=== PATIENT | female | born 1940 | race Caucasian/White ===

== ENCOUNTER 2017-10-19 12:52 | Outpatient (CLI) | payer MEDICARE, MEDICAID ==
[~2017-10-19 12:52] MED LIST: MECLIZINE 25MG25 MG PO; MEDROL 4MG. DOSE4 MG PO
[2017-10-29] MEDS ORDERED: AMIODARONE 200200 MG PO (10:27)
[2017-10-29] MEDS ORDERED: BUMETANIDE2 MG PO (10:27)
[2017-10-29] MEDS ORDERED: APRESOLINE 50MG50 MG OR (10:27)
[2017-10-29] MEDS ORDERED: ISOSORBIDE MON120 MG PO (10:28)
[2017-10-29] MEDS ORDERED: PRAVACHOL 40MG40 MG PO (10:28)
[2017-10-29] MEDS ORDERED: KLOR-CON 1010 ME1 PO (10:30)
[2017-10-29] MEDS ORDERED: POLYETHYLE17 GM/Dose PO (10:48)
[2017-10-29] MEDS ORDERED: CALCIUM600 M1 PO (10:49)
[2017-10-29] MEDS ORDERED: OMEPRAZOLE20 MG PO (10:49)
[2017-10-29] MEDS ORDERED: ADULT LOW DOSE81 MG PO (10:49)
[2017-10-29] MEDS ORDERED: WARFARIN SODIUM3 MG PO (10:49)
== END 2017-10-19 16:28 ==
LOC: ACC 12:52
DX: I48.91 Unspecified atrial fibrillation (principal); Z79.01 Long term (current) use of anticoagulants; Z51.81 Encounter for therapeutic drug level monitoring
CPT/HCPCS: G0463

== ENCOUNTER 2017-10-26 13:36 | Outpatient (CLI) | payer MEDICARE, MEDICAID ==
[2017-10-29] MEDS ORDERED: BUMETANIDE2 MG PO (10:27)
[2017-10-29] MEDS ORDERED: APRESOLINE 50MG50 MG OR (10:27)
[2017-10-29] MEDS ORDERED: AMIODARONE 200200 MG PO (10:27)
[2017-10-29] MEDS ORDERED: PRAVACHOL 40MG40 MG PO (10:28)
[2017-10-29] MEDS ORDERED: ISOSORBIDE MON120 MG PO (10:28)
[2017-10-29] MEDS ORDERED: KLOR-CON 1010 ME1 PO (10:30)
[2017-10-29] MEDS ORDERED: POLYETHYLE17 GM/Dose PO (10:48)
[2017-10-29] MEDS ORDERED: WARFARIN SODIUM3 MG PO (10:49)
[2017-10-29] MEDS ORDERED: ADULT LOW DOSE81 MG PO (10:49)
[2017-10-29] MEDS ORDERED: CALCIUM600 M1 PO (10:49)
[2017-10-29] MEDS ORDERED: OMEPRAZOLE20 MG PO (10:49)
== END 2017-10-26 14:56 ==
LOC: ACC 13:36
DX: I48.91 Unspecified atrial fibrillation (principal); Z79.01 Long term (current) use of anticoagulants; Z51.81 Encounter for therapeutic drug level monitoring
CPT/HCPCS: G0463